=== PATIENT | female | born 1950 | race Two or more races ===

== ENCOUNTER 2025-02-06 09:09 | Outpatient (CLI) | payer OTHER ==
[2025-02-06 10:18] LABS: Hematocrit 36.6 % (36.0-46.0); Hemoglobin 12.7 g/dL (12.2-16.2); Mean Corpuscular Hemoglobin 29.8 pg (28.0-32.0); Mean Corpuscular Volume 86.1 fL (80.0-100.0); Nucleated Red Blood Cells % 0.1 %
[2025-02-06 10:24] LABS: Urine Protein, UAD Negative (Negative)
[2025-02-06 10:33] LABS: Alanine Aminotransferase 11 U/L (7-40); Alkaline Phosphatase 97 U/L (46-116); Anion Gap 8 (5-15); BUN/Creatinine Ratio 15.9 (10.0-20.0); Blood Urea Nitrogen 13 mg/dL (9-23); Calcium 9.6 mg/dL (8.7-10.4); Carbon Dioxide 27 mmol/L (20-31); Chloride 105 mmol/L (98-107); Glucose 93 mg/dL (74-106); HDL Cholesterol 51 mg/dL (40-59); Potassium 4.2 mmol/L (3.5-5.1); Sodium 140 mmol/L (136-145); Total Protein 6.7 g/dL (5.7-8.2)
[2025-02-06 10:34] LABS: Bilirubin, Total 0.6 mg/dL (0.2-1.0)
[2025-02-06 10:39] LABS: Cholesterol 226 mg/dL (< 200); Triglycerides 164 mg/dL (< 150)
[2025-02-06 10:59] LABS: Albumin 4.5 g/dL (3.2-4.8)
== END 2025-02-06 17:00 | disposition home or self-care (01) ==
LOC: LAB 09:09
PROVIDERS: ATTEND Nurse Practitioner Family
DX: I10 Essential (primary) hypertension (principal); E78.5 Hyperlipidemia, unspecified; E55.9 Vitamin D deficiency, unspecified; D64.9 Anemia, unspecified
CPT/HCPCS: 36415; 80053; 80061; 81001; 82306; 82607; 83036; 84443; 85025